=== PATIENT | female | born 1975 | race American Indian/Alaskan Native ===

== ENCOUNTER 2017-01-21 17:05 | Emergency (ER) | payer SELFPAY ==
[2017-01-21] MEDS ORDERED: MOTRIN PO ONE (21:40)
[2017-01-21] MEDS ORDERED: FLEXERIL PO ONE (21:40)
--- NOTE | 2017-01-21 21:42 | Emergency Department Report ---
ED Back Pain/Injury HPI - General Chief Complaint: Back Pain/Injury Stated Complaint: LEFT SHOULDER PAIN Time Seen by Provider: 01/21/17 20:51 Source: patient Limitations: No Limitations - Related Data Previous Rx's Medication Instructions Recorded Last Taken Type Acetaminophen/Codeine [Tylenol #3] 1 tab PO Q6H PRN #10 tab 12/29/14 01/04/15 09 :00 Rx Ibuprofen [Motrin] 800 mg PO Q8HR PRN #15 tablet 01/06/15 Unknown Rx Penicillin Vk [Veetids TAB] 500 mg PO Q8H #30 tablet 01/06/15 Unknown Rx Cyclobenzaprine [Flexeril] 10 mg PO TID PRN #20 tablet 04/06/15 Unknown Rx Ibuprofen [Motrin 800 MG tab] 800 mg PO Q8HR PRN #30 tablet 04/06/15 Unknown Rx Cyclobenzaprine [Flexeril] 10 mg PO TID PRN #20 tablet 07/19/15 Unknown Rx Ibuprofen [Motrin 800 MG tab] 800 mg PO Q8HR PRN #30 tablet 07/19/15 Unknown Rx Vit No.130/Iron/Folic 1 each PO QDAY #30 tablet 08/02/15 Unknown Rx [ Tablet] Nitrofurantoin [place]/M-Cryst 100 mg PO Q12HR #20 capsule 08/11/15 Unknown Rx [Macrobid CAP] Cyclobenzaprine [Flexeril 10 MG 10 mg PO TID PRN #12 tablet 01/21/17 Unknown Rx TAB] Naproxen 500 mg PO BID PRN #30 tablet 01/21/17 Unknown Rx Allergies Allergy/AdvReac Type Severity Reaction Status Date / Time No Known Allergies Allergy Verified 01/21/17 17:26 ED Review of Systems ROS: Stated complaint: LEFT SHOULDER PAIN Other details as noted in HPI Constitutional: denies: chills, fever Eyes: denies: eye pain, eye discharge, vision change ENT: denies: ear pain, throat pain Respiratory: denies: cough, shortness of breath, wheezing Cardiovascular: denies: chest pain, palpitations Endocrine: no symptoms reported Gastrointestinal: denies: abdominal pain, nausea, diarrhea Genitourinary: denies: urgency, dysuria, discharge Musculoskeletal: as per HPI. denies: back pain, joint swelling, arthralgia Skin: denies: rash, lesions Neurological: denies: headache, weakness, paresthesias Psychiatric: denies: anxiety, depression Hematological/Lymphatic: denies: easy bleeding, easy bruising ED Past Medical Hx - Past Medical History Hx Hypertension: Yes (during ) Additional medical history: chronic back pain - Surgical History Additional Surgical History: Inguinal hernia REPAIR - Social History Smoking Status: Former Smoker Substance Use Type: None - Medications Home Medications: Home Medications Medication Instructions Recorded Confirmed Last Taken Type Acetaminophen/Codeine [Tylenol #3] 1 tab PO Q6H PRN #10 tab 12/29/14 01/06/15 09:00 Rx Ibuprofen [Motrin] 800 mg PO Q8HR PRN #15 tablet 01/06/15 Unknown Rx Penicillin Vk [Veetids TAB] 500 mg PO Q8H #30 tablet 01/06/15 Unknown Rx Cyclobenzaprine [Flexeril] 10 mg PO TID PRN #20 tablet 04/06/15 Unknown Rx Ibuprofen [Motrin 800 MG tab] 800 mg PO Q8HR PRN #30 tablet 04/06/15 Unknown Rx Cyclobenzaprine [Flexeril] 10 mg PO TID PRN #20 tablet 07/19/15 Unknown Rx Ibuprofen [Motrin 800 MG tab] 800 mg PO Q8HR PRN #30 tablet 07/19/15 Unknown Rx Vit No.130/Iron/Folic 1 each PO QDAY #30 tablet 08/02/15 Unknown Rx [ Tablet] Nitrofurantoin [place]/M-Cryst 100 mg PO Q12HR #20 capsule 08/11/15 Unknown Rx [Macrobid CAP] Cyclobenzaprine [Flexeril 10 MG 10 mg PO TID PRN #12 tablet 01/21/17 Unknown Rx TAB] Naproxen 500 mg PO BID PRN #30 tablet 01/21/17 Unknown Rx ED Physical Exam - General Limitations: No Limitations General appearance: alert, in no apparent distress - Head Head exam: Present: atraumatic, normocephalic - Eye Eye exam: Present: normal appearance, PERRL, EOMI - ENT ENT exam: Present: mucous membranes moist - Neck Neck exam: Present: normal inspection, full ROM (neck flexion and extension neck lateral rotation and lateral flexion fully intact) - Respiratory Respiratory exam: Present: normal lung sounds bilaterally. Absent: respiratory distress - Cardiovascular Cardiovascular Exam: Present: regular rate, normal rhythm. Absent: systolic murmur, diastolic murmur, rubs, gallop - GI/Abdominal GI/Abdominal exam: Present: soft, normal bowel sounds - Extremities Exam Extremities exam: Present: normal inspection, full ROM (range of motion bilateral shoulders abduction and abduction and internal and external rotation fully intact on exam), tenderness (some reporducible discomfort on deep palpation of b/l trapezius regions, ) - Back Exam Back exam: Present: normal inspection, muscle spasm (palpable spasm in the left trapezius) - Neurological Exam Neurological exam: Present: alert, oriented X3 - Psychiatric Psychiatric exam: Present: normal affect, normal mood - Skin Skin exam: Present: warm, dry, intact, normal color. Absent: rash ED Course Vital Signs 01/21/17 17:27 Temperature 98.7 F Pulse Rate 99 H Respiratory 18 Rate Blood Pressure 128/82 O2 Sat by Pulse 100 Oximetry Critical care attestation.: If time is entered above; I have spent that time in minutes in the direct care of this critically ill patient, excluding procedure time. ED Disposition Clinical Impression: Muscle spasm, Musculoskeletal pain Bilateral shoulder pain Qualifiers: Chronicity: chronic Qualified Code(s): M25.511 - Pain in right shoulder; M25.512 - Pain in left shoulder; M25.512 - Pain in left shoulder; G89.29 - Other chronic pain; G89.29 - Other chronic pain Disposition: TO HOME OR SELFCARE Is pt being admited?: No Does the pt Need Aspirin: No Condition: Stable Instructions: Musculoskeletal Pain (ED), Arthralgia (ED) Prescriptions: Cyclobenzaprine [Flexeril 10 MG TAB] 10 mg PO TID PRN #12 tablet PRN Reason: Muscle Spasm Naproxen 500 mg PO BID PRN #30 tablet PRN Reason: Pain Referrals: [facility] [Outside] - 3-5 Days [facility] [Outside] - 3-5 Days SOREN JOSEPH MD [Referring] - 3-5 Days Forms: Work/School Release Form(ED) Time of Disposition: 21:41
[2017-01-21 23:39] VITALS: BP 111/93
== END 2017-01-21 21:55 | disposition home or self-care (01) ==
LOC: ED 17:05
DX: M25.512 Pain in left shoulder (principal); G89.29 Other chronic pain; M79.1 Myalgia; Z87.891 Personal history of nicotine dependence
CPT/HCPCS: 99282

== ENCOUNTER 2018-04-30 09:02 | Emergency (ER) | payer OTHER ==
[2018-04-30] MEDS ORDERED: PERCOCET 5/325 PO ONE (09:18)
[2018-04-30] MEDS ORDERED: IBUPROFEN PO ONE (09:18)
[2018-04-30] MEDS ORDERED: ZOFRAN ODT PO ONE (09:18)
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
[2018-04-30] MEDS ORDERED: MORPHINE IM ONE (10:30)
[2018-04-30 10:32] VITALS: BP 135/82
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
== END 2018-04-30 12:43 | disposition home or self-care (01) ==
LOC: ED 09:02
DX: S80.02XA Contusion of left knee, initial encounter (principal); M54.2 Cervicalgia; M25.511 Pain in right shoulder; V89.2XXA Person injured in unspecified motor-vehicle accident, traffic, initial encounter; Y93.89 Activity, other specified; Y92.89 Other specified places as the place of occurrence of the external cause; Y99.8 Other external cause status
CPT/HCPCS: 71045; 72040; 73552; 73590; 96372; 99284; J2270; Q0162

== ENCOUNTER 2018-06-29 21:40 | Emergency (ER) | payer OTHER ==
[2018-06-29] MEDS ORDERED: IBUPROFEN PO ONE (21:58)
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
--- NOTE | 2018-06-29 23:54 | XRay Report ---
PROCEDURE: LEFT KNEE 3 VIEWS TECHNIQUE: LEFT knee radiographs, AP, lateral, and sunrise views. CPT 98469 HISTORY: Pain COMPARISONS: None . FINDINGS: Fracture (s) and/or Dislocation(s): None . Alignment: Normal . Joint space(s): Normal . Soft tissues: Normal . Bone mineralization: Normal . Foreign bodies: None . IMPRESSION: Normal Examination . This document is electronically signed by Catracho Madrigal MD., June 29 2018 11:52:39 PM ET
[2018-06-30 00:35] VITALS: BP 145/95
--- NOTE | 2018-06-30 00:57 | Emergency Department Report ---
ED Extremity Problem HPI - General Chief complaint: Extremity Injury, Lower Stated complaint: LEFT KNEE PAIN Time Seen by Provider: 06/29/18 22:21 Source: patient Mode of arrival: Ambulatory Limitations: No Limitations - History of Present Illness Severity scale (0 -10): 8 - Related Data Previous Rx's Medication Instructions Recorded Last Taken Type Acetaminophen/Codeine [Tylenol #3] 1 tab PO Q6H PRN #10 tab 12/29/14 01/04/15 09:00 Rx Ibuprofen [Motrin] 800 mg PO Q8HR PRN #15 tablet 01/06/15 Unknown Rx Penicillin Vk [Veetids TAB] 500 mg PO Q8H #30 tablet 01/06/15 Unknown Rx Cyclobenzaprine [Flexeril] 10 mg PO TID PRN #20 tablet 04/06/15 Unknown Rx Ibuprofen [Motrin 800 MG tab] 800 mg PO Q8HR PRN #30 tablet 04/06/15 Unknown Rx Cyclobenzaprine [Flexeril] 10 mg PO TID PRN #20 tablet 07/19/15 Unknown Rx Ibuprofen [Motrin 800 MG tab] 800 mg PO Q8HR PRN #30 tablet 07/19/15 Unknown Rx Vit No.130/Iron/Folic 1 each PO QDAY #30 tablet 08/02/15 Unknown Rx [ Tablet] Nitrofurantoin [place]/M-Cryst 100 mg PO Q12HR #20 capsule 08/11/15 Unknown Rx [Macrobid CAP] Cyclobenzaprine [Flexeril 10 MG 10 mg PO TID PRN #12 tablet 01/21/17 Unknown Rx TAB] Naproxen 500 mg PO BID PRN #30 tablet 01/21/17 Unknown Rx Cyclobenzaprine [Flexeril] 10 mg PO TID PRN #20 tablet 04/30/18 Unknown Rx Ibuprofen 800 mg PO TID 5 Days #15 tablet 04/30/18 Unknown Rx oxyCODONE /ACETAMINOPHEN [Percocet 1 tab PO Q6HR PRN #10 tablet 04/30/18 Unknown Rx 5/325] Allergies Allergy/AdvReac Type Severity Reaction Status Date / Time No Known Allergies Allergy Verified 01/21/17 17:26 ED Review of Systems ROS: Stated complaint: LEFT KNEE PAIN Other details as noted in HPI ED Past Medical Hx - Past Medical History Previous Medical History?: Yes Hx Hypertension: Yes (during ) Additional medical history: chronic back pain - Surgical History Past Surgical History?: Yes Additional Surgical History: Inguinal hernia REPAIR - Social History Smoking Status: Never Smoker Substance Use Type: Alcohol - Medications Home Medications: Home Medications Medication Instructions Recorded Confirmed Last Taken Type Acetaminophen/Codeine [Tylenol #3] 1 tab PO Q6H PRN #10 tab 12/29/14 01/06/15 01/04/15 09:00 Rx Ibuprofen [Motrin] 800 mg PO Q8HR PRN #15 tablet 01/06/15 Unknown Rx Penicillin Vk [Veetids TAB] 500 mg PO Q8H #30 tablet 01/06/15 Unknown Rx Cyclobenzaprine [Flexeril] 10 mg PO TID PRN #20 tablet 04/06/15 Unknown Rx Ibuprofen [Motrin 800 MG tab] 800 mg PO Q8HR PRN #30 tablet 04/06/15 Unknown Rx Cyclobenzaprine [Flexeril] 10 mg PO TID PRN #20 tablet 07/19/15 Unknown Rx Ibuprofen [Motrin 800 MG tab] 800 mg PO Q8HR PRN #30 tablet 07/19/15 Unknown Rx Vit No.130/Iron/Folic 1 each PO QDAY #30 tablet 08/02/15 Unknown Rx [ Tablet] Nitrofurantoin [place]/M-Cryst 100 mg PO Q12HR #20 capsule 08/11/15 Unknown Rx [Macrobid CAP] Cyclobenzaprine [Flexeril 10 MG 10 mg PO TID PRN #12 tablet 01/21/17 Unknown Rx TAB] Naproxen 500 mg PO BID PRN #30 tablet 01/21/17 Unknown Rx Cyclobenzaprine [Flexeril] 10 mg PO TID PRN #20 tablet 04/30/18 Unknown Rx Ibuprofen 800 mg PO TID 5 Days #15 tablet 04/30/18 Unknown Rx oxyCODONE /ACETAMINOPHEN [Percocet 1 tab PO Q6HR PRN #10 tablet 04/30/18 Unknown Rx 5/325] ED Physical Exam - General Limitations: No Limitations ED Course Vital Signs 06/29/18 23:53 Temperature 97.9 F Pulse Rate 93 H Respiratory 16 Rate Blood Pressure 145/95 O2 Sat by Pulse 100 Oximetry Critical care attestation.: If time is entered above; I have spent that time in minutes in the direct care of this critically ill patient, excluding procedure time. ED Disposition Condition: Stable Referrals: GENA VALLEJO MD [Primary Care Provider] - 3-5 Days
[2018-06-30] MEDS ORDERED: IBUPROFEN ONE (00:58)
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
== END 2018-06-30 01:22 | disposition home or self-care (01) ==
LOC: ED 21:40
DX: M25.562 Pain in left knee (principal); I10 Essential (primary) hypertension